=== PATIENT | female | born 2000 | race Hispanic/Latino ===

== ENCOUNTER 2022-04-11 06:52 | Inpatient (IN) | payer BC, OTHER ==
[~2022-04-11] VITALS: Ht 157.5 cm; Wt 67.1 kg
--- NOTE | 2022-04-11 11:17 | PR ---
[facility] [address] [facility] [place], [place] [address] Signed Progress Notes IP Datetime Report Generated by CPN: 04/11/2022 11:17 PROGRESS NOTES: [id number] Impression: Normal Progression of Labor; Reassuring Heart Rate Procedures: Sterile Vag Exam Plan: Continue Present Management; Anticipate Vaginal Delivery Informed Consent Obtain: Vaginal Delivery VITAL SIGNS: [id number] Vital Signs: Reviewed; Within Normal Limits EXAM: [id number] Dilatation: 9.0 Effacement: 100 Station: -1 Contractions: q 2-3 MEMBRANES: [id number] Membranes Status: Intact Comments: Pt seen and examined. Doing well. No urge to push, uncomfortable w/ contractions. Anticipate soon. All questions answered FETUS A: [id number] FHR Baseline: 135 Variability: Moderate 6-25bpm Accelerations: 15X15 Decelerations: None FHR Category: Category I Presentation: Vertex Comments on Fetus A: No evidence of metabolic acidosis FETUS B: [id number] Signing Physician: Yaya Palacio DO Copies: ~ *Electronically Signed* 04/11/22 1117 YAYA PALACIO DO PATIENT NAME: ISABEL LEO PROGRESS NOTE DATE OF : 02 PHYSICIAN: YAYA PALACIO DO RPT #: [id number] REPORT IS CONFIDENTIAL AND NOT TO BE RELEASED WITHOUT AUTHORIZATION
--- NOTE | 2022-04-11 11:45 | PR ---
[facility] [address] [facility] [place], [place] [address] Signed Progress Notes IP Datetime Report Generated by CPN: 04/11/2022 11:45 PROGRESS NOTES: [id number] Impression: Normal Progression of Labor; Reassuring Heart Rate Procedures: Sterile Vag Exam Plan: Continue Present Management; Anticipate Vaginal Delivery Informed Consent Obtain: Vaginal Delivery VITAL SIGNS: [id number] Vital Signs: Reviewed; Within Normal Limits EXAM: [id number] Dilatation: 9.0 Effacement: 100 Station: -1 Contractions: q 2-3 MEMBRANES: [id number] Membranes Status: Intact Comments: Pt seen and examind. C/O urge to push. Membranes intact but cervix easily reducible. Plan AROM and push to deliver. All questions answered. FETUS A: [id number] FHR Baseline: 135 Variability: Moderate 6-25bpm Accelerations: 15X15 Decelerations: None FHR Category: Category I Presentation: Vertex Comments on Fetus A: No evidence of metabolic acidosis FETUS B: [id number] Signing Physician: Yaya Palacio DO Copies: ~ *Electronically Signed* 04/11/22 1145 YAYA PALACIO DO PATIENT NAME: ISABEL LEO PROGRESS NOTE DATE OF : 02 PHYSICIAN: YAYA PALACIO DO RPT #: [id number] REPORT IS CONFIDENTIAL AND NOT TO BE RELEASED WITHOUT AUTHORIZATION
--- NOTE | 2022-04-11 13:34 | NUR ---
04/11/22 Ibeth4 Chani Jha 1326- PT ARRIVES TO PACU NONAROUSABLE TO STIMULI. RESP EVEN AND UNLABORED. OXYGEN SAT HIGH 90'S TO 100% ON 6L VIA MASK. BRAVO DRAINING CLEAR YELLOW URINE. IV'S INFUSING LR WNL.
--- NOTE | 2022-04-12 22:17 | PR ---
[facility] [address] [facility] [place], [place] [address] Signed PP Progress Notes Datetime Report Generated by CPN: 04/12/2022 22:17 SUBJECTIVE: [id number] Pain: Within Normal Limits Pain Comments: No lightheadedness/dizziness. Bleeding scant Nausea/Vomiting: Denies Flatus: Yes Bowel Movement: No Vital Signs: [id number] Vital Signs: Reviewed; Within Normal Limits Cardiovascular: Normal Respiratory: Normal Abdomen/Uterus: Normal Lochia: Not Done Vulva/Perineum: Not Done Breasts: Not Done CVA Tenderness: Normal Extremities: Normal Incision: Not Applicable Progress: Normal Exam Comments: Fundus firm U-2 nontender IMPRESSION/PLAN/PROCEDURES: [id number] Impression: Normal Progression Plan: Continue Present Management Progress Notes: Pt doing well. Ambulating, voiding, and tolerating full diet. Pain and lochia minimal. No concerns. Anticipate d/c home tomorrow. Signing Physician: Yaya Palacio DO Copies: ~ *Electronically Signed* 04/12/22 9534 YAYA PALACIO DO PATIENT NAME: ISABEL LEO PROGRESS NOTE DATE OF : 02 PHYSICIAN: YAYA PALACIO DO RPT #: [id number] REPORT IS CONFIDENTIAL AND NOT TO BE RELEASED WITHOUT AUTHORIZATION
--- NOTE | 2022-04-13 07:37 | OR ---
[facility] [address] [place], [place] [address] Signed DATE OF OPERATION: 04/11/2022 SURGEON: Yaya Palacio DO PREOPERATIVE DIAGNOSES: 1. Term . 2. hemorrhage. POSTOPERATIVE DIAGNOSES: 1. Term delivered. 2. hemorrhage. 3. Cervical laceration. 4. Retained products of conception (fragment of membranes). PROCEDURE PERFORMED: 1. curettage. 2. Cervical laceration repair. 3. Perineal laceration repair. SALES REPRESENT[employer]IVE [employer]: Susan Mendieta DO ANESTHESIA: General. ESTIMATED BLOOD LOSS: 100 mL in the OR, 1600 mL total. SPECIMENS: None. DRAINS: Soto to gravity. FINDINGS: Continue hemorrhage that resolved quickly upon presentation in the operating room. Uterus initially atonic, but firm at the end of procedure. Small bleeding cervical laceration at 5 o'clock was repaired with 3-0 chromic in a [id number]. Gentle curettage that demonstrates scant fragments of membranes. Labial laceration and second-degree perineal laceration repaired in standard fashion. Bleeding scant at the Electronically Signed By: YAYA PALACIO DO 04/13/22 0737 PATIENT NAME: SANDRA ISABEL DC OPERATIVE REPORT DATE OF : 02 REPORT #: [id number] PHYSICIAN: YAYA PALACIO DO PCP: NO PRIMARY CARE PHYSICIAN REPORT IS CONFIDENTIAL AND NOT TO BE RELEASED WITHOUT AUTHORIZATION [facility] [address] [place], [place] [address] Signed end of the procedure with firm uterus. COMPLICATIONS: None. INDICATIONS: Ms. Boaz Dc is a pleasant 21-year-old G1 female, who presents to the [facility] in spontaneous labor. Her labor progressed to complete and she pushed to spontaneously deliver a viable female without difficulty. Delayed cord clamping was employed and prior to clamping of cord, approximately 2 minutes of life, the patient developed brisk uterine bleeding. The cord was doubly clamped and cut and significant hemorrhage was noted at this point. Gentle cord traction was applied with fundal massage; however, the cord avulsed. Manual extraction of the placenta was then performed and the placenta was removed. Brisk bleeding was continued to be noted and bimanual pressure was applied to stem the bleeding. Somewhat atonic uterus was noted with no obvious retained products of conception. The patient received Pitocin per protocol, Hemabate, Methergine, tranexamic acid, and additional 60 units of Pitocin and a 1000 bag of LR. Continued brisk bleeding was noted. Small second-degree perineal laceration and labial laceration was appreciated. Due to bleeding, thorough evaluation of the cervix was unable to be performed. Decision was made to proceed to the operating room for further evaluation and management. The patient was consented and risks, benefits, and alternatives were discussed in detail with the patient. TECHNIQUE: The patient was taken to the operating room where a time-out was performed to confirm correct patient, correct procedure. General anesthesia was adequately established. The patient was prepped and draped in the dorsal lithotomy position with feet in Yellofin stirrups. ICPs were on and running and patient received 2 g of Ancef preoperatively. At this point, the uterus was noted to be quite a bit firmer with great reduction in her bleeding. A weighted speculum was placed in the vagina and the anterior lip of the cervix was grasped with a ring forceps. The cervix was also grasped at 6 o'clock, 9 and 3 o'clock with ring forceps and the cervix was examined and a small laceration at 5 o'clock, noted to have some brisk bleeding observed. This was repaired using 3-0 chromic in a [id number] suture with significant decrease in bleeding. Bimanual exam was performed that again demonstrated no obvious retained products of conception. A large banjo curette was then selected and curettage was performed demonstrating a very small fragment of likely membranes. The uterus again was firm, involuting with minimal bleeding noted. The labial laceration was repaired using 3-0 Vicryl Rapide in a running nonlocked manner. The second-degree perineal laceration was repaired using 3-0 chromic in standard fashion. A Soto catheter was inserted. Hemostasis was appreciated at the end of the procedure, and again, uterus was firm. Decision was made to not proceed with Bakri placement. Due to the patient's estimated blood loss and recent anemia, decision Electronically Signed By: YAYA PALACIO DO 04/13/22 0737 PATIENT NAME: BOAZ DCISABEL OPERATIVE REPORT DATE OF : 02 REPORT #: [id number] PHYSICIAN: YAYA PALACIO DO PCP: NO PRIMARY CARE PHYSICIAN REPORT IS CONFIDENTIAL AND NOT TO BE RELEASED WITHOUT AUTHORIZATION [facility] [address] [place], [place] [address] Signed was made to give 1 unit of packed red blood cells postoperatively. Sponge, needle, and instrument count was correct x2 at the end of the procedure. Dr. Mendieta was present and participated in all portions of the procedure. Yaya Palacio DO JDW/MODL /[id number] Copies: ~ Electronically Signed By: YAYA PALACIO DO 04/13/22 0737 PATIENT NAME: ISABEL LEO OPERATIVE REPORT DATE OF : 02 REPORT #: [id number] PHYSICIAN: YAYA PALACIO DO PCP: NO PRIMARY CARE PHYSICIAN REPORT IS CONFIDENTIAL AND NOT TO BE RELEASED WITHOUT AUTHORIZATION
--- NOTE | 2022-04-13 10:21 | PR ---
[facility] [address] [place], [place] [address] Signed PP Progress Notes Datetime Report Generated by CPN: 04/13/2022 10:21 SUBJECTIVE: [id number] Pain: Within Normal Limits Pain Comments: No lightheadedness/dizziness. Bleeding scant Nausea/Vomiting: Denies Flatus: Yes Bowel Movement: No Vital Signs: [id number] Vital Signs: Reviewed; Within Normal Limits Cardiovascular: Normal Respiratory: Normal Abdomen/Uterus: Normal Lochia: Normal Vulva/Perineum: Not Done Breasts: Not Done CVA Tenderness: Normal Extremities: Normal Incision: Not Applicable Progress: Normal Exam Comments: fundus firm U-2 nontender IMPRESSION/PLAN/PROCEDURES: [id number] Impression: Normal Progression Plan: Discharge Progress Notes: Pt seen and examined. Doing well. Ambulating, voiding, and tolerating full diet. Pain and lochia minimal. well. No fevers/chills, or other concerns. No lightheadedness or dizziness. Desires d/c home. Reviewed d/c instructions in detail. Unsure of plans for contraception but not planning additional "for at least 4-5 yrs." Signing Physician: Yaya Palacio DO Copies: ~ *Electronically Signed* 04/13/22 1021 YAYA PALACIO DO PATIENT NAME: SANDRA ISABEL DC PROGRESS NOTE DATE OF : 02 PHYSICIAN: YAYA PALACIO DO RPT #: [id number] REPORT IS CONFIDENTIAL AND NOT TO BE RELEASED WITHOUT AUTHORIZATION
== END 2022-04-13 14:40 | disposition home or self-care (01) | DRG 768 ==
LOC: FBCO 06:52 → FBC 07:14
PROVIDERS: ADMIT Obstetrics & Gynecology; ATTEND Obstetrics & Gynecology
PROC: 0UQC0ZZ Repair Cervix, Open Approach (ICD-10-PCS; 2022-04-11)
PROC: 0KQM0ZZ Repair Perineum Muscle, Open Approach (ICD-10-PCS; 2022-04-11)
PROC: 10D17ZZ Extraction of Products of Conception, Retained, Via Natural or Artificial Opening (ICD-10-PCS; 2022-04-11)
PROC: 10907ZC Drainage of Amniotic Fluid, Therapeutic from Products of Conception, Via Natural or Artificial Opening (ICD-10-PCS; 2022-04-11)
PROC: 10E0XZZ Delivery of Products of Conception, External Approach (ICD-10-PCS; principal; 2022-04-11 12:20)
DX: O71.3 Obstetric laceration of cervix (principal); Z37.0 Single live birth; O72.1 Other immediate postpartum hemorrhage; D62 Acute posthemorrhagic anemia; O99.02 Anemia complicating childbirth; Z3A.39 39 weeks gestation of pregnancy; O70.1 Second degree perineal laceration during delivery
CPT/HCPCS: 36415; 80053; 85025; 85027; 85060; 85384; 85610; 85730; 86850; 86900; 86901; 86922; A9270; J1650; J2210; J2590; J7121; P9016

== ENCOUNTER 2025-03-31 09:03 | Emergency (ER) | payer BC ==
[~2025-03-31] VITALS: Ht 157.5 cm; Wt 69.2 kg
[2025-03-31] MEDS ORDERED: FAMOTIDINE 20 MG/ 2 ML VIAL IV ONE (10:00)
[2025-03-31] MEDS ORDERED: LIDOCAINE 2% (VISCOUS) HCL 15 ML UDC MT ONE (10:15)
[2025-03-31] MEDS ORDERED: LIDOCAINE & ANTACID 35 ML BTL PO ONE (10:15)
[2025-03-31 10:30] LABS: BASOPHILS 0.9 % (0.1-1.2); EOSINOPHILS 6.0 % (0.7-5.8); LYMPHOCYTES 25.9 % (19.3-51.7); MCH 26.6 PG (25.6-32.2); MCHC 32.6 g/dL (32.2-35.5); MCV 81.4 fL (79.4-94.8); MONOCYTES 4.9 % (4.7-12.5); NEUTROPHILS 61.9 % (34.0-71.1); RBC 5.31 M/uL (3.93-5.22)
[2025-03-31 10:46] LABS: ALT (SGPT) 706.0 U/L (14-59); AST (SGOT) 294.0 U/L (15-37); GLOMERULAR FILTRATION RATE,EST 137.0 mL/min (>60); PROTEIN, TOTAL 8.2 g/dL (6.4-8.2); UREA NITROGEN 9.0 mg/dL (7-18)
[2025-03-31 10:53] LABS: BLOOD/HGB, URINE LARGE (Negative); KETONE, URINE NEGATIVE (Negative); LEUK ESTERASE, URINE LARGE (negative); NITRITE, URINE NEGATIVE (negative)
[2025-03-31 11:14] LABS: BACTERIA, URINE NONE SEEN /hpf (negative); CASTS, URINE NONE SEEN \\lpf; CRYSTALS, URINE NONE SEEN (0-1+); EPITHELIAL CELLS, URINE SQUAMOUS 4+ /lpf (0-1+); REFLEX CULTURE, URINE No (No)
[2025-03-31] MEDS ORDERED: ONDANSETRON HCL4 MG PO (12:59)
[2025-03-31] MEDS ORDERED: HYDROCODON-ACE1 EAC8 PO (12:59)
[2025-03-31 13:14] VITALS: BP 117/76
== END 2025-03-31 13:10 | disposition home or self-care (01) ==
LOC: ED 09:03
PROVIDERS: Emergency Medicine
DX: R74.01 Elevation of levels of liver transaminase levels (principal); K80.20 Calculus of gallbladder without cholecystitis without obstruction
CPT/HCPCS: 36415; 76705; 80053; 81001; 83690; 84703; 85025; 96374; 99284-25